=== PATIENT | male | born 1970 | race Caucasian/White ===

== ENCOUNTER 2025-05-23 04:13 | Emergency (ER) | payer OTHER ==
[~2025-05-23] VITALS: Ht 177.8 cm; Wt 68.2 kg
[2025-05-23 04:21] VITALS: TEMP 97.9
[2025-05-23 06:33] LABS: PLATELET COUNT (AUTO) 316 K/uL (150-450); RED BLOOD CELL COUNT(AUTO) 4.75 MIL/uL (4.50-5.90); RED CELL DISTRIBUTION WIDTH 13.9 % (11.5-14.5); WHITE BLOOD COUNT (AUTO) 10.9 K/uL (4.5-11.0)
[2025-05-23 06:41] LABS: CALCIUM, TOTAL 9.0 mg/dL (8.8-10.5); CREATININE 0.82 mg/dL (0.60-1.30); GLOMERULAR FILTR. RATE CALC > 60 mL/min (>60); GLUCOSE,RANDOM 102 mg/dL (70-110); SODIUM SERUM 141 mmol/L (136-145); UREA NITROGEN, BLOOD 15 mg/dL (7-18)
[2025-05-23] MEDS: CEPHALEXIN MONOHYDRATE 500 MG CAPSULE PO ONE (07:00)
[2025-05-23] MEDS: CLOTRIMAZOLE 1% 15 GM CREAM TP ONE (07:00)
[2025-05-23] MEDS: SULFAMETHOX/TRIMETH DS 800-160 MG/TABLET PO ONE (07:00)
[2025-05-23] MEDS ORDERED: CEPH-558 PO (07:03)
[2025-05-23] MEDS ORDERED: SULF-261 PO (07:03)
[2025-05-23 07:09] VITALS: BP 132/74; PULSE 71; RESP 18; O2SAT 98
== END 2025-05-23 07:33 | disposition home or self-care (01) ==
LOC: EMS 04:13
DX: L03.115 Cellulitis of right lower limb (principal); B35.3 Tinea pedis; F17.210 Nicotine dependence, cigarettes, uncomplicated
CPT/HCPCS: 80048; 85025; 99284

== ENCOUNTER 2025-07-08 01:18 | Emergency (ER) | payer OTHER ==
[~2025-07-08] VITALS: Ht 177.8 cm; Wt 72.7 kg
[~2025-07-08 01:18] MED LIST: CEPH-558 PO; SULF-261 PO
[2025-07-08 01:24] VITALS: BP 147/105; PULSE 86; RESP 16; TEMP 97.9; O2SAT 97
[2025-07-08] MEDS ORDERED: SULF-261 PO (01:53)
[2025-07-08] MEDS ORDERED: HYDR25TA83 PO (01:53)
[2025-07-08] MEDS ORDERED: CEPH-558 PO (01:53)
[2025-07-08] MEDS: CefTRIAXone SODIUM 1 GM/VIAL IM ONE (02:10)
[2025-07-08] MEDS: LIDOCAINE/PF 1% 2 ML VIAL IM ONE (02:10)
== END 2025-07-08 02:12 | disposition home or self-care (01) ==
LOC: EMS 01:18
DX: L03.115 Cellulitis of right lower limb (principal); L03.116 Cellulitis of left lower limb; F17.210 Nicotine dependence, cigarettes, uncomplicated; Z79.899 Other long term (current) drug therapy
CPT/HCPCS: 99283; 96372; J0696; J3490

== ENCOUNTER 2025-07-31 03:08 | Emergency (ER) | payer OTHER ==
[~2025-07-31] VITALS: Ht 172.7 cm; Wt 68.2 kg
[~2025-07-31 03:08] MED LIST changes: +HYDR25TA83 PO
[2025-07-31 03:21] VITALS: BP 145/93; PULSE 88; RESP 17; TEMP 97.9; O2SAT 98
[2025-07-31] MEDS ORDERED: CLOT15CR75 TP (23:53)
== END 2025-07-31 04:43 | disposition left against medical advice (07) ==
LOC: EMS 03:09
DX: M79.672 Pain in left foot (principal); M79.671 Pain in right foot; Z53.21 Procedure and treatment not carried out due to patient leaving prior to being seen by health care provider

== ENCOUNTER 2025-07-31 23:08 | Emergency (ER) | payer OTHER ==
[~2025-07-31] VITALS: Ht 177.8 cm; Wt 70.5 kg
[2025-07-31 23:11] VITALS: BP 147/114; PULSE 79; RESP 18; TEMP 98.6; O2SAT 100
[2025-07-31] MEDS ORDERED: CLOT15CR75 TP (23:53)
== END 2025-08-01 00:16 | disposition home or self-care (01) ==
LOC: EMS 23:08
DX: B35.3 Tinea pedis (principal); F17.210 Nicotine dependence, cigarettes, uncomplicated; Z79.899 Other long term (current) drug therapy
CPT/HCPCS: 99283; Z7502

== ENCOUNTER 2025-11-02 05:22 | Emergency (ER) | payer OTHER ==
[~2025-11-02] VITALS: Ht 177.8 cm; Wt 72.7 kg
[~2025-11-02 05:22] MED LIST changes: +CLOT15CR75 TP; -SULF-261 PO; +SULF1TAB94 PO
[2025-11-02 05:33] VITALS: BP 140/94; PULSE 85; RESP 14; TEMP 98.2; O2SAT 99
== END 2025-11-02 06:36 | disposition left against medical advice (07) ==
LOC: EMS 05:22
DX: M79.673 Pain in unspecified foot (principal); Z53.21 Procedure and treatment not carried out due to patient leaving prior to being seen by health care provider
CPT/HCPCS: 99281; Z7502